=== PATIENT | female | born 1965 | race African-American/Black ===

== ENCOUNTER 2023-04-28 09:16 | Outpatient (CLI) | payer BC, SELFPAY ==
--- NOTE | 2023-04-28 11:30 | NEURO_ITS ---
Impression: # Known diabetic on multiple meds complains of numbness of hands and feet. # Right ulnar neuropathy around the elbow. # Mild sensory Carpal Tunnel Syndrome. # Bilateral saphenous sensory neuropathy. # Normal needle/EMG exam. Nerve Conduction Studies Anti Sensory Summary Table Stim Site NR Peak (ms) P-T Amp (?V) Site1 Site2 Delta-P (ms) Dist (cm) Jordan (m/s) Left Median Anti Sensory (2-3nd Digit) Wrist 4.0 32.6 Wrist 2-3nd Digit 4.0 14.0 35 Wrist 4.4 26.7 Wrist 2-3nd Digit 4.0 14.0 35 Right Median Anti Sensory (2-3nd Digit) Wrist 3.6 53.6 Wrist 2-3nd Digit 3.6 14.0 39 Wrist 3.6 36.4 Wrist 2-3nd Digit 3.6 14.0 39 Left Radial Anti Sensory (Base 1st Digit) Wrist 1.7 56.5 Wrist Base 1st Digit 1.7 0.0 Right Radial Anti Sensory (Base 1st Digit) Wrist 2.2 33.9 Wrist Base 1st Digit 2.2 0.0 Left Saphenous Anti Sensory (Ant Med Mall) NO RESPONSE 14cm NR 14cm Ant Med Mall 0.0 Right Saphenous Anti Sensory (Ant Med Mall) NO RESPONSE 14cm NR 14cm Ant Med Mall 0.0 Left Sup Fibular Anti Sensory (Ant Lat Mall) 14 cm 3.1 12.3 14 cm Ant Lat Mall 3.1 16.0 52 Right Sup Fibular Anti Sensory (Ant Lat Mall) 14 cm 3.0 24.9 14 cm Ant Lat Mall 3.0 16.0 53 Left Sural Anti Sensory (Lat Mall) Calf 3.6 6.4 Calf Lat Mall 3.6 16.0 44 Right Sural Anti Sensory (Lat Mall) Calf 3.5 8.7 Calf Lat Mall 3.5 16.0 46 Left Ulnar Anti Sensory (5th Digit) Wrist 2.6 66.6 Wrist 5th Digit 2.6 14.0 54 Right Ulnar Anti Sensory (5th Digit) Wrist 2.4 82.9 Wrist 5th Digit 2.4 14.0 58 Motor Summary Table Stim Site NR Onset (ms) O-P Amp (mV) Site1 Site2 Delta-0 (ms) Dist (cm) Jordan (m/s) Left Median Motor (Abd Poll Brev) Wrist 3.9 8.0 Elbow Wrist 4.6 27.0 59 Elbow 8.5 6.1 Right Median Motor (Abd Poll Brev) Wrist 3.7 5.8 Elbow Wrist 4.3 26.0 60 Elbow 8.0 2.8 Left Peroneal Motor (Vastus Med) Ankle 3.5 0.9 Popit Ankle 8.1 0.0 Popit 11.6 0.6 Right Peroneal Motor (Vastus Med) Ankle 3.4 2.9 Popit Ankle 8.0 41.0 51 Popit 11.4 2.0 Left Tibial Motor (Abd Joy Brev) Ankle 4.3 0.8 Knee Ankle 8.0 41.0 51 Knee 12.3 0.5 Right Tibial Motor (Abd Joy Brev) Ankle 4.7 3.2 Knee Ankle 8.5 42.0 49 Knee 13.2 1.8 Left Ulnar Motor (Abd Dig Minimi) Wrist 2.5 7.2 A Elbow Wrist 5.0 27.0 54 A Elbow 7.5 6.9 B Elbow Wrist 4.0 22.0 55 B Elbow 6.5 6.9 Right Ulnar Motor (Abd Dig Minimi) Wrist 2.4 6.0 A Elbow Wrist 6.0 29.0 48 A Elbow 8.4 5.0 B Elbow Wrist 3.9 20.0 51 B Elbow 6.3 5.4 F Wave Studies NR F-Lat (ms) L-R F-Lat (ms) Left Median (Mrkrs) (Abd Poll Brev) 27.53 0.83 Right Median (Mrkrs) (Abd Poll Brev) 26.70 0.83 Left Peroneal (Mrkrs) (EDB) 60.55 0.70 Right Peroneal (Mrkrs) (EDB) 61.25 0.70 Left Tibial (Mrkrs) (Abd Hallucis) 60.47 0.23 Right Tibial (Mrkrs) (Abd Hallucis) 60.23 0.23 Left Ulnar (Mrkrs) (Abd Dig Min) 27.73 0.95 Right Ulnar (Mrkrs) (Abd Dig Min) 26.78 0.95 EMG Side Muscle Nerve Root Ins Act Fibs Amp Dur Recrt Comment Right 1stDorInt Ulnar C8-T1 Nml Nml Nml Nml Nml Right Ext Indicis Radial (Pos
== END 2023-04-28 09:17 | disposition home or self-care (01) ==
LOC: ANHNEURO 09:18
PROVIDERS: PCP Internal Medicine Infectious Disease; Visit Provider Internal Medicine Infectious Disease
DX: R20.0 Anesthesia of skin (principal); G56.21 Lesion of ulnar nerve, right upper limb; G56.00 Carpal tunnel syndrome, unspecified upper limb
CPT/HCPCS: 95886; 95913